=== PATIENT | female | born 1995 | race Caucasian/White ===

== ENCOUNTER 2017-03-06 21:44 | Emergency (ER) | payer OTHER ==
[2017-03-06 21:45] VITALS: BMI 27.6
[2017-03-06] MEDS ORDERED: Sodium Chloride 0.9% 1,000 ML IV ONE (22:05)
--- NOTE | 2017-03-06 22:11 | C.PDOC ---
History Of Present Illness A 22 y/o F c/o headache, left sided ear ache, dizziness, nausea, sore throat, body aches, and palpitations that began today. Denies fever, chills, urinary changes, or any other complaints. Time Seen by Provider: 03/06/17 21:59 Chief Complaint (Nursing): Dizziness/Lightheaded History Per: Patient History/Exam Limitations: no limitations Onset/Duration Of Symptoms: Hrs Current Symptoms Are (Timing): Still Present Severity: Mild Recent travel outside of the [place]: No Additional History Per: Patient Past Medical History Reviewed: Historical Data, Nursing Documentation, Vital Signs Vital Signs: Last Vital Signs Temp 98.9 F 03/06/17 23:32 Pulse 83 03/06/17 23:32 Resp 16 03/06/17 23:32 BP 103/58 L 03/06/17 23:32 Pulse Ox 98 03/07/17 00:26 Family History: States: Unknown Family Hx - Social History Hx Tobacco Use: Yes (occasional) Hx Alcohol Use: No Hx Substance Use: No - Immunization History Hx Tetanus Toxoid Vaccination: No Hx Influenza Vaccination: No Hx Pneumococcal Vaccination: No Review Of Systems Except As Marked, All Systems Reviewed And Found Negative. Constitutional: Positive for: Other (Body aches). Negative for: Fever, Chills ENT: Positive for: Ear Pain (Left sided ear ache), Throat Pain Cardiovascular: Positive for: Palpitations Gastrointestinal: Positive for: Nausea Genitourinary: Negative for: Frequency, Incontinence Neurological: Positive for: Headache, Dizziness Physical Exam - Physical Exam Appears: Non-toxic, No Acute Distress Skin: Warm, Dry Head: Atraumatic, Normacephalic Ear(s): Left: Other (Left TM opaque), Right: Normal Oral Mucosa: Moist Throat: Erythema, Exudate Cardiovascular: Rhythm Regular Respiratory: Normal Breath Sounds, No Accessory Muscle Use, No Rales, No Rhonchi , No Wheezing Gastrointestinal/Abdominal: Soft, No Tenderness Neurological/Psych: Oriented x3, Normal Speech, Normal Cognition Gait: Steady ED Course And Treatment - Laboratory Results Result Diagrams: 03/06/17 22:22 03/06/17 22:22 ECG: Interpreted By Me, Viewed By Me ECG Rhythm: Sinus Tachycardia Interpretation Of ECG: NO ST/T wave changes Rate From EC O2 Sat by Pulse Oximetry: 98 (RA) Pulse Ox Interpretation: Normal Medical Decision Making Medical Decision Making: Impression: A 22 y/o F c/o headache, left sided ear ache, dizziness, nausea, sore throat, body aches, and palpitations since today. Plans: -EKG -Blood work up -Tylenol -Zofran -IV fluids -Rapid strep -CXR -Reassess 1055:pt reasseseD: speaking full sentences, on phone, smiling in nad. states feels "much better". requesting to be d/c. noted leukocytosis, tachycardia resolved. suspected 2/2 om/pharyitits. will dc with antibitoics. abd soft no ttp. pt ambulatory. pt notified about leukocytosis. advised to have repeat testing outpt. given strict ED return precauitons. pt verbalizes understanding. Disposition - Disposition Referrals: [facility] [Outside] [facility] [Outside] [facility] [Outside] [facility] [Outside] Disposition: HOME/ ROUTINE Disposition Time: 22:57 Condition: STABLE Additional Instructions: please follow up with your doctor/clinic. return to er with worsening symptoms or concerns. Prescriptions: Amoxicillin [Amoxil 500 mg Cap] 500 mg PO TID #21 cap Instructions: Pharyngitis (ED), Otitis Media (ED), Dizziness (ED) Forms: [employer] (Arabic) - Clinical Impression Clinical Impression: Acute pharyngitis, Otitis media, Dizziness - Scribe Statement The provider has reviewed the documentation as recorded by the Scribvero [email or web address] All medical record entries made by the Scribe were at my direction and personally dictated by me. I have reviewed the chart and agree that the record accurately reflects my personal performance of the history, physical exam, medical decision making, and the department course for this patient. I have also personally directed, reviewed, and agree with the discharge instructions and disposition.
[2017-03-06] MEDS ORDERED: Sodium Chloride 0.9% 1,000 ML ONE (22:15)
[2017-03-06 22:25] LABS: BASO % 0.3 % (0.0-2.0); HEMOGLOBIN 12.5 g/dL (11.0-16.0); LYMPH # 0.8 K/uL (1.0-4.3); LYMPH % 4.8 % (20.0-40.0); MEAN CORPUSCULAR HGB CONC 33.8 g/dL (33.0-37.0); MEAN PLATELET VOLUME 8.2 fL (7.2-11.7); MONO # 1.2 K/uL (0.0-0.8); MONO % 6.9 % (0.0-10.0); NEUT # 14.8 K/uL (1.8-7.0); PLATELET COUNT 304 K/uL (130-400); RBC 4.61 Mil/uL (3.80-5.20); RED CELL DISTRIBUTION WIDTH 12.6 % (11.5-14.5)
[2017-03-06 22:31] LABS: MEAN CELL VOLUME 80.1 fL (81.0-99.0); WHITE BLOOD COUNT 16.8 K/uL (4.8-10.8)
[2017-03-06 22:33] LABS: ALBUMIN 3.7 g/dL (3.5-5.0)
[2017-03-06 22:35] LABS: HCG,QUALITATIVE URINE NEGATIVE (NEGATIVE)
[2017-03-06 22:35] LABS: GFR AFRICAN-AMERICAN > 60; GFR NON-AFRICAN AMERICAN > 60
[2017-03-06 22:36] LABS: SQUAMOUS EPITHIAL 14 /hpf (0-5); URINE BACTERIA RARE (<OCC); URINE BILIRUBIN NEGATIVE (NEGATIVE); URINE BLOOD NEGATIVE (NEGATIVE); URINE CLARITY Hazy (Clear); URINE COLOR Yellow (YELLOW); URINE GLUCOSE (UA) NORMAL (Normal); URINE LEUKOCYTE ESTERASE NEG Leu/uL (Negative); URINE NITRATE NEGATIVE (NEGATIVE); URINE PROTEIN NEGATIVE (NEGATIVE)
[2017-03-06 22:36] LABS: ALT/SGPT 20 U/L (9-52); AST/SGOT 20 U/L (14-36); BLOOD UREA NITROGEN 8 mg/dL (7-17); CALCIUM 8.6 mg/dl (8.6-10.4)
[2017-03-06 22:46] LABS: LYMPHOCYTE 4 % (20-40); MONOCYTE 3 % (0-10); NEUTROPHIL 93 % (50-75); PLATELET ESTIMATE NORMAL (NORMAL); TOTAL CELLS COUNTED 100
[2017-03-06 22:47] LABS: HYPOCHROMIC SLIGHT; LARGE PLATELETS PRESENT; OVALOCYTES SLIGHT; POIKILOCYTOSIS SLIGHT; POLYCHROMIC SLIGHT
[2017-03-06] MEDS ORDERED: cefTRIAXone IV 1 gm in Dextros 50 ML IVPB ONE (23:09)
[2017-03-06 23:33] VITALS: BP 103/58; PULSE 83; RESP 16; TEMP 98.9
[2017-03-07 00:26] VITALS: O2SAT 98
--- NOTE | 2017-03-07 08:46 | RAD ---
HISTORY: SOB COMPARISON: No prior. TECHNIQUE: Chest PA and lateral FINDINGS: LUNGS: The lungs are clear. PLEURA: No significant pleural effusion identified. No pneumothorax apparent. CARDIOVASCULAR: Normal. OSSEOUS STRUCTURES: No significant abnormalities. VISUALIZED UPPER ABDOMEN: Normal. OTHER FINDINGS: None. IMPRESSION: No active pulmonary disease.
== END 2017-03-06 23:32 | disposition home or self-care (01) ==
LOC: C.ER 21:44
DX: J02.9 Acute pharyngitis, unspecified (principal); H66.92 Otitis media, unspecified, left ear; Z72.0 Tobacco use
CPT/HCPCS: 71020; 80053; 81001; 84703; 85025; 87070; 87430; 96365; 96375; 99285; J0696; J2405; J7040

== ENCOUNTER 2017-03-07 16:14 | Emergency (ER) | payer OTHER ==
[2017-03-07 16:15] VITALS: BMI 27.6
[2017-03-07] MEDS ORDERED: Sodium Chloride 0.9% 1,000 ML IV ONE (16:47)
--- NOTE | 2017-03-07 16:59 | C.PDOC ---
History Of Present Illness Patient is a 22 y/o F who was seen in ED yesterday for L sided otitis media. She was evaluated for strep (negative), and was discharged home with antibiotics tid. (Cxray and ua was also negative). She reports that since she has been home she has had worsening ear pain. She reports that she has only taken 1 dose of amoxicillin since discharge (missed yesterday evening and this afternoon dose). She reports that she has not taken anything for the pain. Time Seen by Provider: 03/07/17 16:28 Chief Complaint (Nursing): ENT Problem Past Medical History Vital Signs: Last Vital Signs Temp 98.1 F 03/07/17 17:38 Pulse 89 03/07/17 17:38 Resp 16 03/07/17 17:38 BP 101/65 03/07/17 17:38 Pulse Ox 98 03/07/17 17:38 Family History: States: Unknown Family Hx - Social History Hx Tobacco Use: Yes (occasional) Hx Alcohol Use: No Hx Substance Use: No - Immunization History Hx Tetanus Toxoid Vaccination: No Hx Influenza Vaccination: No Hx Pneumococcal Vaccination: No Review Of Systems Constitutional: Positive for: Fever (subjective), Chills ENT: Positive for: Ear Pain, Throat Pain Cardiovascular: Negative for: Chest Pain, Palpitations, Edema, Light Headedness Respiratory: Negative for: Cough, Shortness of Breath, SOB with Excertion, Wheezing Gastrointestinal: Negative for: Nausea, Vomiting, Abdominal Pain, Diarrhea, Constipation Genitourinary: Negative for: Dysuria, Vaginal Discharge, Vaginal Bleeding Neurological: Negative for: Weakness, Numbness Physical Exam - Physical Exam Appears: Well, Non-toxic, No Acute Distress Skin: Normal Color, Warm, Dry Head: Atraumatic, Normacephalic Eye(s): bilateral: Normal Inspection, PERRL, EOMI Ear(s): Left: TM Dull, Right: TM Erythema, Bilateral: Other (no mastoid tenderness b/l) Nose: Normal Oral Mucosa: Moist Tongue: Normal Appearing Lips: Normal Appearing Teeth: Normal Dentition Gingiva: Normal Appearing Throat: Normal, Erythema, No Exudate Neck: Normal, Supple Chest: Symmetrical Cardiovascular: Rhythm Regular (tachycardic) Respiratory: Normal Breath Sounds, No Rales, No Rhonchi, No Wheezing Gastrointestinal/Abdominal: Soft, No Tenderness, No Mass, No Distention Back: Normal Inspection, No CVA Tenderness Extremity: Normal ROM Neurological/Psych: Oriented x3 ED Course And Treatment - Laboratory Results Result Diagrams: 03/07/17 17:03 03/07/17 17:03 O2 Sat by Pulse Oximetry: 99 Medical Decision Making Medical Decision Making: Patient's symptoms are consistent with otitis media. No mastoid tenderness. Will give toradol, IVF, antibiotics, get labs and reevaluate 6:08PM Lactate WNL. Leukocytosis essentially unchanged. Patient is now talking on cell phone and reports that she feels better. Her vitals normalized after IVF. Patient was instructed on the importance of taking antibiotics as prescribed tid and tylenol and motrin for pain Disposition - Disposition Disposition: HOME/ ROUTINE Disposition Time: 18:09 Condition: GOOD Additional Instructions: Take antibiotics as prescribed. Take tylenol or motrin for pain. Return to ED if condition worsens. Follow-up with PMD to ensure your leukocytosis resolves. - Clinical Impression Clinical Impression: Otitis media
[2017-03-07 17:11] LABS: VENOUS BLOOD GAS BASE EXCESS 0.5 mmol/L (0.0-2.0); VENOUS BLOOD GAS PCO2 37 mmHg (40-60); VENOUS BLOOD GAS PO2 43 mm/Hg (30-55); VENOUS BLOOD PH 7.43 (7.32-7.43)
[2017-03-07 17:11] LABS: BASO # 0.1 K/uL (0.0-0.2); BASO % 0.5 % (0.0-2.0); EOS % 0.1 % (0.0-4.0); HEMOGLOBIN 12.1 g/dL (11.0-16.0); LYMPH # 1.8 K/uL (1.0-4.3); LYMPH % 10.2 % (20.0-40.0); MEAN CELL VOLUME 80.8 fL (81.0-99.0); MEAN CORPUSCULAR HEMOGLOBIN 27.4 pg (27.0-31.0); MEAN CORPUSCULAR HGB CONC 33.9 g/dL (33.0-37.0); MEAN PLATELET VOLUME 8.6 fL (7.2-11.7); MONO # 1.6 K/uL (0.0-0.8); MONO % 9.4 % (0.0-10.0); NEUT # 13.9 K/uL (1.8-7.0); NEUT % 79.8 % (50.0-75.0); RBC 4.4 Mil/uL (3.80-5.20); RED CELL DISTRIBUTION WIDTH 12.9 % (11.5-14.5); WHITE BLOOD COUNT 17.4 K/uL (4.8-10.8)
[2017-03-07 17:20] LABS: ALBUMIN 3.7 g/dL (3.5-5.0)
[2017-03-07 17:23] LABS: AST/SGOT 37 U/L (14-36); BLOOD UREA NITROGEN 6 mg/dL (7-17); GFR AFRICAN-AMERICAN > 60; GFR NON-AFRICAN AMERICAN > 60
[2017-03-07 17:24] LABS: ALT/SGPT 17 U/L (9-52); CALCIUM 8.4 mg/dl (8.6-10.4); MAGNESIUM 1.7 mg/dL (1.6-2.3)
[2017-03-07 17:38] VITALS: BP 101/65; PULSE 89; RESP 16; TEMP 98.1
[2017-03-07 18:10] VITALS: O2SAT 99
== END 2017-03-07 18:21 | disposition home or self-care (01) ==
LOC: C.ER 16:14
DX: H66.91 Otitis media, unspecified, right ear (principal)
CPT/HCPCS: 80053; 82803; 83735; 84100; 85025; 87040; 96361; 96374; 99283; J1885; J7040